=== PATIENT | female | born 1990 | race Caucasian/White ===

== ENCOUNTER 2023-11-10 00:55 | Emergency (ER) | payer MEDICAID, SELFPAY ==
[2023-11-10] VITALS (40 sets, daily range): BP systolic 106–142; BP diastolic 34–97; PULSE 75–114; RESP 16–19; TEMP 36.1; O2SAT 88–100; BMI 25.1
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
[2023-11-10 01:52] LABS: Chloride* 106 mmol/L (96-114); Potassium* 3.8 mmol/L (3.6-5.1); Sodium* 140 mmol/L (135-149)
[2023-11-10 01:54] LABS: Creatinine* 0.6 mg/dL (0.5-1.5); Est. Creatinine Clearance* 139.37; Estimated Glomerular Filt Rate 121 ml/min
[2023-11-10 01:55] LABS: Anion Gap 13 mEq/L (7-15); Blood Urea Nitrogen* 9 mg/dL (5-24); Calcium* 9.2 mg/dL (8.4-10.6); Carbon Dioxide* 21 mmol/L (20-32); Glucose* 121 mg/dL (60-115); Magnesium* 2.2 mg/dL (1.5-2.6)
[2023-11-10 01:56] LABS: HCG Qualitative Serum* Negative (Negative)
[2023-11-10 02:04] LABS: Ethanol* 0.35 % (0.01-0.03)
[2023-11-10] MEDS: AMPICILLIN/SULBACTAM 1.5 GM in 0.9 % SODIUM CHLORIDE Mini-bag 100 ML IVPB (02:09)
[2023-11-10] MEDS: LACTATED RINGERS 1000 ML 1,000 ML 500 ML IV (02:48)
[2023-11-10] MEDS: HYDROmorphone 0.5 mg/0.5 ml inj IVP ×2 (03:01→04:10)
[2023-11-10] MEDS: NICOTINE 21 MG PATCH 1 PATCH TRANSDERMA (03:01)
--- NOTE | 2023-11-10 03:11 | PC.NURSE ---
Pt placed on 2L O2 per NC for sats 89% on room air after dilaudid IVP. Sats up to 94%.
[2023-11-10] MEDS: LACTATED RINGERS 1000 ML 1,000 ML 125 ML IV (04:53)
== END 2023-11-10 05:07 | disposition short-term general hospital (02) ==
PROVIDERS: Emergency Provider Family Medicine
DX: S02.40FA Zygomatic fracture, left side, initial encounter for closed fracture (principal); S02.69XB Fracture of mandible of other specified site, initial encounter for open fracture; V00.841A Fall from standing electric scooter, initial encounter; S03.03XA Dislocation of jaw, bilateral, initial encounter; F10.129 Alcohol abuse with intoxication, unspecified
CPT/HCPCS: 36415; 70450; 70486; 72125; 80048; 82077; 83735; 84703; 96365; 99285; 99291; J0295; J1170; J7120; S4990

== ENCOUNTER 2023-11-10 04:44 | Outpatient (CLI) | payer MEDICAID, SELFPAY | END 2023-11-10 04:45 | disposition home or self-care (01) | LOC: AMB 11-11 04:17 | PROVIDERS: Visit Provider Family Medicine | DX: S09.93XA Unspecified injury of face, initial encounter (principal) | CPT/HCPCS: A0425; A0427 ==

== ENCOUNTER 2023-11-13 21:03 | Emergency (ER) | payer MEDICAID, SELFPAY ==
[2023-11-13 21:08] VITALS: BP 136/85; PULSE 84; RESP 16; TEMP 37; O2SAT 97; BMI 23.6
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
--- OUTSIDE RECORDS SUMMARY | 2023-11-13 21:53 | XMS_ITS | Referral Summary ---
Author Organization [facility] Address [address] [place] [address] Phone Care Team Providers Care Corporate Licensed Broker Name Role Phone Unavailable Primary Care Provider Unavailabl e Source Comments [employer] is fully rolled out on [employer]. Last update 09/22/08.Path101 Encounters Date Type Department Care Team Description 11/12/2023 Nurse Triage [facility] [address] [id number] Ros Lange RN Post Op 11/11/2023 Orders Only Unspecified Department [place] Unknown, Provider 11/11/2023 Orders Only Unspecified Department [place] Unknown, Provider 11/10/2023 5:40 AM CDT - 11/11/2023 5:42 PM CDT Hospital Encounter [facility] 1 [address] [facility] [address] [place] [address] Paige Koehler MD Smith, Mark D, MD Payne, Rachel E, MD Masters, Misael Palma II, MD Closed fracture of mandible, unspecified laterality, unspecified mandibular site, initial encounter ([facility]) Discharge Disposition: Discharged to home or self care (routine discharge) 11/10/2023 4:18 PM CDT Anesthesia Event OR P4 [address] [place] [id number] Misael Jones MD Ahinful, Jana P, RN 11/10/2023 4:00 PM CDT - 11/10/2023 6:50 PM CDT Surgery OR P4 [address] [place] [address] Kota Fernández MD MANDIBLE ORIF, maxillomandibular fixation 11/10/2023 Orders Only [facility] Radiology Department ROEL [address] [place] [place] [address] Provider, Outside Referral of patient (Primary Dx) 11/10/2023 Travel from Last 3 Months Allergies No known active allergies Medications * Be aware that medications may not be up to date as of this document. Always verify current medications with patient. Medication Sig Dispensed Refills Start Date End Date Status acetaminophen childrens 160 mg/ 5 ml oral oral suspensionIndications :Pain Take 20 mL (640 mg) by mouth every 4 hours as needed (Use as needed for pain every 4 hours). 472 mL 1 11/11/2023 Active chlorhexidine (PERIDEX) 0.12% mouth/throat solutionIndications:O pen fracture of symphysis of body of mandible, initial encounter ([facility]),Closed fracture of mandible, unspecified laterality, unspecified mandibular site, initial encounter ([facility]) Swish and spit 15 mL by mouth 3 times daily. 473 mL 1 11/11/2023 Active ondansetron (ZOFRAN) 4 mg oral TABS Take 1 tablet (4 mg) by mouth twice daily as needed for Nausea/Vomiting . 10 tablet 11/11/2023 Active oxyCODONE (ROXICODONE) 5 mg/5 mL oral solution Take 5-10 mL (5-10 mg) by mouth every 6 hours as needed for Severe Pain. 320 mL 11/11/2023 11/19/2023 Active senna (SENOKOT) 8.6 mg oral tablet Take 1 tablet (8.6 mg) by mouth twice daily. 30 tablet 1 11/11/2023 Active Active Problems Problem Noted Date Diagnosed Date Open fracture of tooth, initial encounter 2023 Closed fracture of mandible, unspecified laterality, unspecified mandibular site, initial encounter ([facility]) 11/10/2023 Immunizations Name Administration Dates Next Due Tetanus Toxoid, Reduced Diph theroid Toxoid Acellular Pertussis 11/10/2023 Social History Tobacco Use Types Packs/Day Years Used Date Smoking Tobacco: Every Day Cigarettes Alcohol Use Standard Drinks/Week Comments Yes 0 (1 standard drink = 0.6 oz pur e alcohol) Humiliation, Afraid, Rape, and Kick questionnair e Answer Date Recorded Within the last year, have y ou been afraid of your partner or ex-partner? No 11/10/2023 Within the last year, have y ou been humiliated or emotionally abused in other ways by your partner or ex-partner? No Within the last year, have y ou been kicked, hit, slapped, or otherwise physically hurt by your partner or ex-partner? No 11/10/2023 Within the last year, have y ou been raped or forced to have any kind of sexual activity by your partner or ex-partner? No 11/10/2023 Overall Financial Resource Strain (CARDIA) Answe r Date Recorded How hard is it for you to pa y for the very basics like food, housing, medical care, and heating? Not very hard 11/10/2023 Hunger Vital Sign Answer Date Recorded Within the past 12 months, y ou worried that your food would run out before you got the money to buy more. Never true 11/10/19 24 Within the past 12 months, t he food you bought just didn't last and you didn't have money to get more. Never true 11/10/2023 PRAPARE - Transportation Answer Date Re corded In the past 12 months, has l ack of transportation kept you from medical appointments or from getting medications? No 10/19 In the past 12 months, has l ack of transportation kept you from meetings, work, or from getting things needed for daily living? No 11/10/2023 Housing Stability Answer Date Recorded What is your housing situation today? 3 - I have housing 11/10/2023 Sex and Gender Information Value Date Recorded Sex Assigned at Not on file Gender Identity Not on file Sexual Orientation Not on file Last Filed Vital Signs Vital Sign Reading Time Taken Comments Blood Pressure 139/90 11/11/2023 4:00 PM CDT Pulse 86 11/11/2023 4:00 PM CDT Temperature 36.7 ??C (98 ??F) 11/11/2023 3:14 PM CDT Respiratory Rate 18 11/11/2023 3:14 PM CDT Oxygen Saturation 97% 11/11/2023 4:00 PM CDT Inhaled Oxygen Concentration - - Weight 74 kg (163 lb 2.3 oz) 11/10/2023 9:19 PM CDT Height 175.3 cm (5' 9) 11/10/2023 3:30 PM CDT Body Mass Index 24.09 11/10/2023 3:30 PM CDT Plan of Treatment Upcoming Encounters Date Type Department Care Team (Late st Contact Info) Description 11/18/2023 1:00 PM CDT Office Visit [facility] [address] [place] [phone] Scheduled Discharge Disposition: Discharged to home or self care (routine discharge) 11/23/2023 10:00 AM CDT Office Visit [facility] [address] [place] [address] Sonia, Gen Surg Trauma [address] [place] [id number] Scheduled Discharge Disposition: Discharged to home or self care (routine discharge) Medical Devices Implanted Type Area Lead Press Operator Device Identifier Shelf Expiration Date Model / Serial / Lot Cedar 24 Gauge 9in [id number] Implanted:Qty : 9 on 11/10/2023 by Kota Fernández MD at [facility] Bilateral: Mandible [employer]-24GA / / Cedar 22 Gauge 9in Wire [id number] Implanted:Qty : 1 on 11/10/2023 by Kota Fernández MD at [facility] Bilateral: Mandible [employer]-22GA / / Cedar 26 Gauge 9in [id number] Implanted:Qty : 1 on 11/10/2023 by Kota Fernández MD at [facility] N/A: Mandible [employer]-26GA / / 3x3 Cresent .727 Implanted:Qty : 1 on 11/10/2023 by Kota Fernández MD at [facility] Plate Mandible [employer] 503.72 7 / / 2x2 Hole Broad, Malleable .750 Implanted:Qty : 1 on 11/10/2023 by Kota Fernández MD at [facility] Plate Mandible [employer] 503.75 0 / / Plate, Ti 10 Hole (Short) .820 Implanted:Qty : 1 on 11/10/2023 by Kota Fernández MD at [facility] Plate Mandible [employer] 04.503.82 0 / / 16mm .446.01 Implanted:Qty : 2 on 11/10/2023 by Kota Fernández MD at [facility] Screw/Junie t Mandible [employer] .503.44 6.01 / / Screw Wave 8mm, ..825.01 Implanted:Qty : 1 on 11/10/2023 by Kota Fernández MD at [facility] Screw/Junie t Mandible [employer] ..82 5.01 / / 6mm ..406.01 Implanted:Qty : 4 on 11/10/2023 by Kota Fernández MD at [facility] Screw/Junie t Mandible [employer] .503.40 6.01 / / 12 Mm .442. Implanted:Qty : 2 on 11/10/2023 by Kota Fernández MD at [facility] Screw/Junie t Mandible [employer] .503.44 2.01 / / 14mm 444.01 Implanted:Qty : 2 on 11/10/2023 by Kota Fernández MD at [facility] Screw/Junie t Mandible [employer] .503.44 4.01 / / Screw Wave 6mm ..824.01 Implanted:Qty : 6 on 11/10/2023 by Kota Fernández MD at [facility] Mandible [employer] [email or web address] .503.82 4.01 / / Procedures Procedure Name Priority Date/Time Associated Diagnosis Comments TELEMETRY STRIPS 11/11/2023 8:51 AM CDT TELEMETRY STRIPS 11/11/2023 8:43 AM CDT PANEL BASIC METABOLIC (BMP) Routine 11/11/2023 6:15 AM CDT TC LAB BLOOD DRAW BY VENIPUNCTURE Routine 11/11/2023 6:[address] FACIAL BONES NO IV CON Routine 11/10/2023 9:07 PM CDT POC GLUCOSE Routine 11/10/2023 8:06 PM CDT INTUBATION Routine 11/10/2023 5:[address] OUTSIDE READ HEAD/FACIAL BONES Routine 11/10/2023 5:[address] OUTSIDE READ SPINE CERVICAL/NECK Routine 11/10/2023 4:[address] OUTSIDE READ HEAD/FACIAL BONES Routine 11/10/2023 4:57 PM CDT MANDIBLE ORIF Urgent (< 48 hrs) 11/10/2023 4:08 PM CDT Open fracture of symphysis of body of mandible, initial encounter (CMS) PF NEED BONER MEAT REVIEW ADDITIONAL COMMENT NWR Routine 11/10/2023 7:30 AM CDT PF REPR SUPERF WND FACE 2.6-5 Routine 11/10/2023 7:30 AM CDT XR PELVIS AP* Routine 11/10/2023 7:25 AM CDT XR CHEST 2 VIEWS PA + LAT* Routine 11/10/2023 7:25 AM CDT EXTRA TUBE - SST Routine 11/10/2023 6:45 AM CDT TC LAB BLOOD DRAW BY VENIPUNCTURE Routine 11/10/2023 6:45 AM CDT BETA HCG, SERUM STAT 11/10/2023 6:40 AM CDT PRECAUTIONARY TUBE STAT 11/10/2023 6: 40 AM CDT PC ELECTROLYTES PANEL STAT 11/10/2023 6:40 AM CDT PC LAB CBC W/DIFF & PLT STAT 11/10/2023 6:40 AM CDT HIV 1 AND HIV 2 SCREEN Routine 10/02/2009 Screening for HIV (human immunodeficiency virus) from Last 3 Months or Most Recently Relevant to Health Maintenance Results * TELEMETRY STRIPS (11/11/2023 8:51 AM CDT) Only the most recent of2 resultswithin the time period is included. Narrative 11/11/2023 8:51 AM CDT Ordered by an unspecified provider. Provider Unknown RAD ECHO * (ABNORMAL) PANEL BASIC METABOLIC (BMP) (11/11/2023 6:15 AM CDT) CO2 26 22 - 30 mmol/L [facility] Glucose 128(H) 70 - 100 mg/dL [facility] BUN 7 6 - 20 mg/dL [facility] Creatinine 0.63 0.50 - 1.00 mg/dL [facility] Calcium 8.8 8.6 - 10.0 mg/dL [facility] Sodium 138 135 - 148 mmol/L [facility] Potassium 3.9 3.5 - 5.3 mmol/L [facility] Chloride 103 92 - 108 mmol/L [facility] eGFR (2020 CKD-EPI) 120 >=60 ml/min/1.7 3m2 [facility] Comment: The estimated glomerular filtration rate (eGFR) was calculated using the CKD-EPI 2020 creatinine equation, which does not include race as a factor. This equation is validated in individuals 18 years of age and older, and eGFR is normalized to a body surface area of 1.73m^2. AnGap 9 8 - 16 mmol/L [facility] Blood 11/11/2023 6:15 AM CDT 11/11/2023 6:22 AM CDT Paige Koehler MD LABORATORY [facility] [address] [place] [id number] * (ABNORMAL) CBC WITH PLATELET (11/11/2023 6:15 AM CDT) WBC 11.76(H) 4.00 - 10.00 k/cmm [facility] RBC 4.07 3.90 - 5.20 m/cmm [facility] Hgb 13.3 11.5 - 15.7 g/dL [facility] Hematocrit 39.7 34.0 - 45.0 % [facility] MCV 97.5 80.0 - 100.0 fL [facility] MCH 32.7(H) 25.0 - 32.0 pg [facility] MCHC 33.5 31.0 - 36.0 g/dL [facility] RDW 12.2 11.5 - 14.5 % [facility] Plt 234 150 - 400 k/cmm [facility] MPV 9.7 6.5 - 12.5 fL [facility] Blood 11/11/2023 6:15 AM CDT 11/11/2023 6:22 AM CDT Paige Koehler MD LABORATORY [facility] [address] [address] * CT FACIAL BONES NO IV CON (11/10/2023 9:07 PM CDT) Anatomical Region Laterality Modality Skull Computed Tomogra phy 11/10/2023 9:23 PM CDT Impressions 11/10/2023 10:21 PM CDT Impression: 1. Postoperative changes of ORIF of the parasymphyseal mandibular fracture with improved alignment. Mandibulomaxillary fixation. 2. Increased displacement of the right subcondylar fracture. Stable displaced left subcondylar patent left coronoid process fractures. I have personally reviewed the image(s) and initial interpretation, and I agree with the findings as documented by the resident/fellow. Reading Radiologist: Kam Argueta Reading Resident: Byron Neil Narrative 11/10/2023 10:21 PM CDT Indication: ??post-op mandible ORIF ??. Comparison: ??Same day CT facial bones ?? Technique:Using thin collimation multidetector helical acquisition technique, axial and coronal thin section CT images were reconstructed through the facial bones. Images were reviewed in bone and soft tissue windows. Dose Total DLP = 191.4 mGy.cm. ?? Findings: ?? Postoperative changes of ORIF of the parasymphyseal mandibular fracture with mandibulomaxillary fixation. Improved alignment of the parasymphyseal fracture. Increased displacement of the right subcondylar fracture. Stable displaced left subcondylar and left coronoid process fractures. Mild soft tissue swelling. Postsurgical subcutaneous emphysema. Unremarkable orbits. Paranasal sinuses and mastoid air cells are clear. Procedure Note Kam Argueta MD - 11/10/2023 Indication: post-op mandible ORIF . Comparison: Same day CT facial bones Technique:Using thin collimation multidetector helical acquisitiontechnique, axial and coronal thin section CT images were reconstructedthrough the facial bones. Images were reviewed in bone and soft tissuewindows. Dose Total DLP = 191.4 mGy.cm. Findings: Postoperative changes of ORIF of the parasymphyseal mandibular fracturewith mandibulomaxillary fixation. Improved alignment of the parasymphysealfracture. Increased displacement of the right subcondylar fracture. Stable displacedleft subcondylar and left coronoid process fractures. Mild soft tissue swelling. Postsurgical subcutaneous emphysema.Unremarkable orbits. Paranasal sinuses and mastoid air cells are clear. IMPRESSION Impression: 1. Postoperative changes of ORIF of the parasymphyseal mandibular fracturewith improved alignment. Mandibulomaxillary fixation. 2. Increased displacement of the right subcondylar fracture. Stabledisplaced left subcondylar patent left coronoid process fractures. I have personally reviewed the image(s) and initial interpretation, and Iagree with the findings as documented by the resident/fellow. Reading Radiologist: Kam Argueta Reading Resident: Byron Neil Miguel Finch MD RAD CT NEURO * (ABNORMAL) POC GLUCOSE (11/10/2023 8:06 PM CDT) POC Glucose 140(H) 70 - 100 mg/dL [facility] Blood 11/10/2023 8:06 PM CDT Paige Koehler MD LABORATORY [facility] [address] [place] [address], * Intubation/Airway (11/10/2023 5:42 PM CDT) Narrative Manuelito Nam APRN, ASHISH - 11/10/2023 5:42 PM CDT Manuelito Nam APRN, CRNA ? 11/10/2023 ??5:42 PM AIRWAY/INTUBATION PROCEDURE GlideScope ??(Type: Surgical Anesthesia) Process/Method: sedated and paralyzed ?? Indications for procedure: surgery Assessment: TMD >3 finger breadths and vocal cords open and clear Preoxygenation: mask Device ?? The patient was intubated with a 6.5 mm nasal POLLO endotracheal tube inflated to seal and secured at 25 cm to R Naris Grade: I Sellicks not used Narrative 1 intubation attempt(s) confirmed in 0-30 sec ?? Intubation Assessment: +ETCO2, EBBS and fog in ETT Ease of masking (I-easy to IV-difficult): I Ease of intubation (I-easy to IV-difficult): I Dentition Assessment: dentition unchanged and oral mucosa unchanged Events Anesthesia start: 11/10/2023 4:18 PM Intubation time: 11/10/2023 4:26 PM Misael Jones MD PROCEDURES * CT OUTSIDE READ HEAD/FACIAL BONES (11/10/2023 5:26 PM CDT) Only the most recent of2 resultswithin the time period is included. Anatomical Region Laterality Modality Skull Computed Tomogra phy 11/10/2023 8:29 PM CDT Impressions 11/10/2023 8:34 PM CDT Impression: ?? Multiple acute displaced mandibular fractures. Reading Radiologist: Kam Argueta Narrative 11/10/2023 8:34 PM CDT Indication: ??Patient transferred from [facility] due to Trauma. ??No initial report accompanied the patient and/or Dr. ??SANDRA NORTH requested an interpretation by me. Technique: ??CT scan of the facial bones done on 11/10/2023 without IV contrast. ??3 mm axial and coronal reconstructions reviewed in soft tissue and bone windows, per the local institution's scanning protocols, which may differ from the [facility] trauma protocols. Findings: ?? Acute mandible fractures: -Mildly displaced and comminuted right parasymphyseal fracture that involves the alveolar ridge at the left central incisor and likely at the right central incisor. -Displaced right subcondylar fracture with apex lateral. -Displaced left subcondylar fracture. -Displaced fracture of the left coronoid process. No additional facial fractures identified. Minimal soft tissue swelling. Orbits are unremarkable. Paranasal sinuses are clear. Visualized intracranial contents are unremarkable on these limited images. Procedure Note Kam Argueta MD - 11/10/2023 Indication: Patient transferred from [facility] due to Trauma.No initial report accompanied the patient and/or Dr. SANDRA NORTHrequested an interpretation by me. Technique: CT scan of the facial bones done on 11/10/2023 without IVcontrast. 3 mm axial and coronal reconstructions reviewed in soft tissueand bone windows, per the local institution's scanning protocols, whichmay differ from the [facility] trauma protocols. Findings: Acute mandible fractures: -Mildly displaced and comminuted right parasymphyseal fracture thatinvolves the alveolar ridge at the left central incisor and likely at theright central incisor. -Displaced right subcondylar fracture with apex lateral. -Displaced left subcondylar fracture. -Displaced fracture of the left coronoid process. No additional facial fractures identified. Minimal soft tissue swelling.Orbits are unremarkable. Paranasal sinuses are clear. Visualizedintracranial contents are unremarkable on these limited images. IMPRESSION Impression: Multiple acute displaced mandibular fractures. Reading Radiologist: Kam Argueta Sandra North PORTABLE MACHINE CUTTER, CELEBRITY MANAGER RAD CT NEURO * CT OUTSIDE READ SPINE CERVICAL/NECK (11/10/2023 4:58 PM CDT) Anatomical Region Laterality Modality Cervical Spine Computed Tomogra phy 11/10/2023 4:31 PM CDT Impressions 11/10/2023 4:52 PM CDT Impression: ?? 1. No fracture or subluxation of the cervical vertebrae. 2. No significant spinal canal or neural foraminal stenosis. 3. Mandibular fractures better evaluated on same day CT head. I have personally reviewed the image(s) and initial interpretation, and I agree with the findings as documented by the resident/fellow. Reading Radiologist: Kam Argueta Reading Resident: Byron Neil 11/10/2023 4:52 PM CDT Indication: ??Patient transferred from outside Hospital due to Trauma. ??No initial report accompanied the patient and/or Dr. ??SANDRA NORTH requested an interpretation by me. Technique: ??CT scan of the cervical spine done on 11/10/2023 without IV contrast. ??2 mm axial, sagittal and coronal reconstructions reviewed in soft tissue and bone windows, per the local institution's scanning protocols, which may differ from the [facility] trauma protocols. Findings: ?? The lateral masses of C1 appear normally aligned on C2. Straightening of the normal cervical lordosis. Alignment of the cervical spine appears intact. There is no evidence of fracture or significant prevertebral soft tissue swelling. There is no significant disc space narrowing at any level. No abnormality of the visualized paraspinous tissues is noted. Mandibular bilateral subcondylar fractures better evaluated on same day CT head. Procedure Note Kam Argueta MD - 11/10/2023 Indication: Patient transferred from outside Hospital due to Trauma. Noinitial report accompanied the patient and/or Dr. SANDRA NORTH requestedan interpretation by me. Technique: CT scan of the cervical spine done on 11/10/2023 without IVcontrast. 2 mm axial, sagittal and coronal reconstructions reviewed insoft tissue and bone windows, per the local institution's scanningprotocols, which may differ from the [facility] trauma protocols. Findings: The lateral masses of C1 appear normally aligned on C2. Straightening ofthe normal cervical lordosis. Alignment of the cervical spine appearsintact. There is no evidence of fracture or significant prevertebral softtissue swelling. There is no significant disc space narrowing at anylevel. No abnormality of the visualized paraspinous tissues is noted. Mandibular bilateral subcondylar fractures better evaluated on same day CThead. IMPRESSION Impression: 1. No fracture or subluxation of the cervical vertebrae. 2. No significant spinal canal or neural foraminal stenosis. 3. Mandibular fractures better evaluated on same day CT head. I have personally reviewed the image(s) and initial interpretation, and Iagree with the findings as documented by the resident/fellow. Reading Radiologist: Kam Argueta Reading Resident: Byron Neil Sandra North PORTABLE MACHINE CUTTER, CELEBRITY MANAGER RAD CT NEURO * PF REPR SUPERF WND FACE 2.6-5, PF NEED BONER MEAT REVIEW ADDITIONAL COMMENT NWR (11/10/2023 7:30 AM CDT) Narrative Paige Koehler MD - 11/10/2023 7:30 AM CDT Venkatesh Chang MD ? 11/10/2023 ??7:44 PM Laceration Repair Performed by: Venkatesh Chang MD Authorized by: Paige Koehler MD ?? Consent: ??Consent obtained: ??Verbal Anesthesia: ??Anesthesia method: ??Local infiltration ??Local anesthetic: ??Lidocaine 1% WITH epi Laceration details: ??Location: ??Face ??Face location: ??Chin ??Length (cm): ??4 ??Depth (mm): ??2 Exploration: ??Hemostasis achieved with: ??Direct pressure ??Wound exploration: entire depth of wound visualized ?? Treatment: ??Area cleansed with: ??Saline ??Amount of cleaning: ??Standard ??Irrigation solution: ??Sterile saline ??Irrigation volume: ??50 ??Irrigation method: ??Syringe ??Visualized foreign bodies/material removed: no ?? Skin repair: ??Repair method: ??Sutures ??Suture size: ??5-0 ??Wound skin closure material used: Ethilon. ??Suture technique: ??Simple interrupted ??Number of sutures: ??4 Repair type: ??Repair type: ??Simple Post-procedure details: ??Procedure completion: ??Tolerated well, no immediate complications Comments: ?? 4ccs of 1% lidocaine with epi injected into area Paige Koehler MD PROCEDURES * XR PELVIS AP* (11/10/2023 7:25 AM CDT) Anatomical Region Laterality Modality Pelvis Computed Radiogr aphy 11/10/2023 7:40 AM CDT Impressions 11/10/2023 7:41 AM CDT Impression: No acute osseous abnormalities Reading Radiologist: Jay Yeager 11/10/2023 7:41 AM CDT EXAMINATION: XR PELVIS AP* 11/10/2023 7:26 AM Indication: ??trauma ??. Comparison: None Findings: Lower lumbar spine is unremarkable. SI joints are symmetric. Iliac crests are intact. Anterior pelvis is negative. Femoral necks and proximal femurs are negative. Procedure Note Jay Yeager MD - 11/10/2023 EXAMINATION: XR PELVIS AP* 11/10/2023 7:26 AM Indication: trauma . Comparison: None Findings: Lower lumbar spine is unremarkable. SI joints are symmetric.Iliac crests are intact. Anterior pelvis is negative. Femoral necks andproximal femurs are negative. IMPRESSION Impression: No acute osseous abnormalities Reading Radiologist: Jay Yeager Paige Koehler MD RAD XRAY * XR CHEST 2 VIEWS PA + LAT* (11/10/2023 7:25 AM CDT) Anatomical Region Laterality Modality Chest Computed Radiogr aphy 11/10/2023 7:38 AM CDT Impressions 11/10/2023 7:40 AM CDT Impression: No traumatic abnormalities. No acute disease Reading Radiologist: Jay Yeager Narrative 11/10/2023 7:40 AM CDT EXAMINATION: XR CHEST 2 VIEWS PA + LAT* 11/10/2023 7:25 AM Indication: ??trauma ??. Comparison: None Findings: Cardiomediastinal silhouette is normal. Lungs are free from infiltrate and negative for pneumothorax. No effusions. Skeletal structures are intact. Procedure Note Jay Yeager MD - 11/10/2023 EXAMINATION: XR CHEST 2 VIEWS PA + LAT* 11/10/2023 7:25 AM Indication: trauma . Comparison: None Findings: Cardiomediastinal silhouette is normal. Lungs are free frominfiltrate and negative for pneumothorax. No effusions. Skeletalstructures are intact. IMPRESSION Impression: No traumatic abnormalities. No acute disease Reading Radiologist: Jay Yeager Paige Koehler MD RAD XRAY * EXTRA TUBE - BLUE (11/10/2023 6:45 AM CDT) BLUE TUBE [facility] Comment:Blue top(Sodium citr ate) tubes are kept for 3 days from the collection date. Blood 11/10/2023 6:45 AM CDT 11/10/2023 6:56 AM CDT Paige Koehler MD LABORATORY [facility] [address] [address] * EXTRA TUBE - SST (11/10/2023 6:45 AM CDT) SST TUBE Stored [facility] Comment:SST tubes (Serum Sep arator) are stored in the lab for 3 days from the collection date. Blood 11/10/2023 6:45 AM CDT 11/10/2023 6:56 AM CDT Paige Koehler MD LABORATORY Performing Organization Address City/[facility] Co de Phone Number [facility] [address] [phone] * (ABNORMAL) ED CHEMISTRY LABS(NA,K,CL,CO2,GLU,CREAT,CA-IONIZED,ANION GAP) (11/10/2023 6:40 AM CDT) Sodium 145 135 - 148 mmol/L [facility] Chloride 110(H) 92 - 108 mmol/L [facility] AnGap 11 8 - 16 mmol/L [facility] Glucose 126(H) 70 - 100 mg/dL [facility] ICA, Actual 4.36(L) 4.40 - 5.20 mg/dL [facility] ICA, pH Corrected 4.39(L) 4.40 - 5.20 mg/dL [facility] Creatinine 0.73 0.50 - 1.00 mg/dL [facility] BICARB 24 22 - 26 mEq/L [facility] eGFR (2020 CKD-EPI) 111 >=60 ml/min/1.7 3m2 [facility] Comment: The estimated glomerular filtration rate (eGFR) was calculated using the CKD-EPI 2020 creatinine equation, which does not include race as a factor. This equation is validated in individuals 18 years of age and older, and eGFR is normalized to a body surface area of 1.73m^2. Potassium 3.7 3.5 - 5.3 mmol/L [facility] Blood 11/10/2023 6:40 AM CDT 11/10/2023 6:58 AM CDT Paige Koehler MD LABORATORY [facility] [address] [place] [phone] * (ABNORMAL) CBC WITH PLTS/AUTO DIFF (11/10/2023 6:40 AM CDT) WBC 8.57 4.00 - 10.00 k/cmm [facility] RBC 4.02 3.90 - 5.20 m/cmm [facility] Hgb 13.2 11.5 - 15.7 g/dL [facility] Hematocrit 38.0 34.0 - 45.0 % [facility] MCV 94.5 80.0 - 100.0 fL [facility] MCH 32.8(H) 25.0 - 32.0 pg [facility] MCHC 34.7 31.0 - 36.0 g/dL [facility] RDW 12.1 11.5 - 14.5 % [facility] Plt 235 150 - 400 k/cmm [facility] MPV 9.5 6.5 - 12.5 fL [facility] Automated Abs Neutrophil 6.37 1.70 - 6.50 k/cmm [facility] Comment:Preliminary ANC, Fin al Result to Follow Abs Immature Granulocyte 0.03 0.00 - 0.09 k/cmm [facility] Comment:The Immature Granulo cyte Absolute count contains metamyelocytes and myelocytes. Abs Neutrophil 6.37 1.70 - 6.50 k/cmm [facility] Abs Lymphocyte 1.76 0.80 - 4.00 k/cmm [facility] Abs Monocyte 0.38 0.20 - 1.00 k/cmm [facility] Abs Eosinophil 0.01 0.00 - 0.60 k/cmm [facility] Abs Basophil 0.02 0.00 - 0.20 k/cmm [facility] Blood 11/10/2023 6:40 AM CDT 11/10/2023 7:11 AM CDT Paige Koehler MD LABORATORY Performing Organization Address City/[facility] Co de Phone Number [address] [phone] * PRECAUTIONARY TUBE (11/10/2023 6:40 AM CDT) Prec Tube Precautionary Blood Bank Specimen Received. [facility] Blood 11/10/2023 6:40 AM CDT 11/10/2023 6:57 AM CDT Paige Koehler MD LAB TRANSFUSION SER VICES Performing Organization Address [facility] Co de Phone Number [address] [address] * BETA HCG, SERUM (11/10/2023 6:40 AM CDT) Beta HCG <1.0 mIU/ml [facility] Comment: HCG Reference Ranges: Male: ?? <2.6 mIU/ml Non ,Premenopausal: <5.3 mIU/ml Postmenopausal: ??<8.3 mIU/ml 3 weeks gestation: ??5.8 - 71.2 mIU/ml 4 weeks gestation: ??9.5 - 750 mIU/ml 5 weeks gestation: ??217 - 7138 mIU/ml 6 weeks gestation: ??158 - 48276 mIU/ml 7 weeks gestation: ??0697 - 884935 mIU/ml 8 weeks gestation: ??52463 - 300484 mIU/ml 9 weeks gestation: ??71007 - 243305 mIU/ml 10 weeks gestation: 18442 - 998544 mIU/ml 12 weeks gestation: 06037 - 699318 mIU/ml 14 weeks gestation: 89645 - 29043 mIU/ml Blood 11/10/2023 6:40 AM CDT 11/10/2023 7:11 AM CDT Paige Koehler MD LABORATORY Performing Organization Address City/[facility] Co de Phone Number [facility] [address] [address] * HIV SCREEN (10/02/2009) HIV1&2 non-reactiv e [facility] Blood specimen (specimen) 10/02/2009 Leora Ruano APRN, CELEBRITY MANAGER [employer] [facility] from Last 3 Months or Most Recently Relevant to Health Maintenance Advance Directives For more information, please contact: [phone] * Full Code (Latest Code Status on File) Date Activated Date Inactivated Comments 11/10/2023 9:17 PM 11/11/2023 8:47 PM Question Answer Comments Does the Patient have prefer ences regarding life sustaining measures (these options only apply when the patient has a pulse): No Discussed Code Status With Whom? Not discussed
--- OUTSIDE RECORDS SUMMARY | 2023-11-13 21:53 | XMS_ITS | Encounter Summary ---
Author Organization [facility] Address [address] [place] [address] Phone Care Team Providers Care Internal Grinder Name Role Phone Unavailable Primary Care Provider Unavailabl e Encounter Details Date Type Department Care Team ([facility] st Contact Info) Description 11/11/2023 Orders Only Unspecified Department [place] Unknown, Provider Social History Tobacco Use Types Packs/Day Years [...] on file Sexual Orientation Not on file documented as of this encounter Plan of Treatment Upcoming Encounters Date Type Department Care Team (Late st Contact Info) Description 11/18/2023 1:00 PM CDT [facility] [address] [place] [phone] Scheduled Discharge Disposition: Discharged to home or self care (routine discharge) 11/23/2023 10:00 AM CDT [facility] [address] [place] [phone] Sonia, Gen Surg Trauma [address] [place] [phone] Scheduled Discharge Disposition: Discharged to home or self care (routine discharge) documented as of this encounter Procedures Procedure Name Priority Date/Time Associated Diagnosis Comments TELEMETRY STRIPS 11/11/2023 8:51 AM CDT documented in this encounter Results * TELEMETRY STRIPS (11/11/2023 8:51 AM CDT) Narrative 11/11/2023 8:51 AM CDT Ordered by an unspecified provider. Provider Unknown RAD ECHO documented in this encounter Visit Diagnoses Not on filedocumented in this encounter
--- OUTSIDE RECORDS SUMMARY | 2023-11-13 21:53 | XMS_ITS | Encounter Summary ---
Author Organization [facility] Address [address] [place] [phone] Phone Care Team Providers Care Line Out Man Name Role Phone Unavailable Primary Care Provider Unavailabl e Reason for Visit * Reason Onset Date Comments Post Op 11/12/2023 Encounter Details Date Type Department Care Team ([facility] st Contact Info) Description 11/12/2023 Nurse Triage [facility] [address] [place] [phone] Ros Lange, RN [address] [place] [address] Post Op Social History Tobacco Use Types Packs/Day Years [...] on file documented as of this encounter Miscellaneous Notes * Telephone Encounter - Paula Martines RN - 11/12/2023 9:43 AM CDT D: Warm transfer from summer associate. Patient's boyfriend calling with patient because a band holding her jaw in place snapped last night. Reviewed patient with Dr. Cheema, PGY5 who advised that patient and/or patient's boyfriend can attempt to replace band, but if unable they can wait until their followup appointment next week. A: Relayed recommendations to patient's boyfriend. Direct clinic number given for any further questions or concerns. R/P: Patient and patient's boyfriend indicated understanding and are agreeable to plan. No further questions at this time. Paula Martines RN, 11/12/2023 9:49 AM * Telephone Encounter - Ros Lange RN - 11/12/2023 9:28 AM CDT Reason for Disposition [1] Caller has URGENT question AND [2] triager unable to answer question Protocols used: Post-Op Symptoms and [id number] D: Pt on day 3 s/p Mandible ORIF procedure date of 11/09 with hospital discharge yesterday evening, after her jaw was wired shut. Around 9pm last night, she says something snapped on R side behind canine in one spot. Pain is controlled with her medications. Pt gave verbal to speak to her bf Rommel Blunt: Alannah connected to [facility] for direction - they are also asking whether or not pharmacies sell a jaw ice pack of some kind RP: Pending Ros Lange RN, 11/12/2023 9:32 AM documented in this encounter Plan of Treatment Upcoming Encounters Date Type Department Care Team (Late st Contact Info) Description 11/18/2023 1:00 PM CDT [facility] [address] [place] [phone] Scheduled Discharge Disposition: Discharged to home or self care (routine discharge) 11/23/2023 10:00 AM CDT [facility] [address] [place] [phone] Sonia, Gen Surg Trauma [address] [place] [phone] Scheduled Discharge Disposition: Discharged to home or self care (routine discharge) documented as of this encounter Visit Diagnoses Not on filedocumented in this encounter
--- OUTSIDE RECORDS SUMMARY | 2023-11-13 21:53 | XMS_ITS | Clinical Summary ---
Author Organization [facility] Address [address] [place] [address] Phone Care Team Providers Care Senior Sales Director Name Role Phone Unavailable Primary Care Provider Unavailabl e Source Comments [employer] is fully rolled out on [employer]. Last update 09/22/08.[facility] Allergies No known active allergies Medications * [...] symphysis of body of mandible, initial encounter ([facility]),Closed fracture of mandible, unspecified laterality, unspecified mandibular site, initial encounter ([facility]) Swish and spit 15 mL by mouth [...] unspecified laterality, unspecified mandibular site, initial encounter ([facility]) 11/10/2023 Encounters Date Type Department Care Team Description 11/12/2023 Nurse Triage [facility] [address] [address] Ros Lange RN Post Op 11/11/2023 Orders Only Unspecified Department [place] Unknown, Provider 11/11/2023 Orders Only Unspecified Department [place] Unknown, Provider 11/10/2023 4:18 PM CDT Anesthesia Event OR P4 [address] [place] [address] Misael Jones MD Ahinful, Jana P, RN 11/10/2023 4:00 PM CDT - 11/10/2023 6:50 PM CDT Surgery OR P4 [address] [place] [address] Kota Fernández MD MANDIBLE ORIF, maxillomandibular fixation 11/10/2023 5:40 AM CDT - 11/11/2023 5:42 PM CDT Hospital Encounter [facility] Rapid Treatment Unit [address] [place] [address] Paige Koehler MD Smith, MD David Paul Rachel E, MD Masters, Misael Palma II, MD Closed fracture of mandible, unspecified laterality, unspecified mandibular site, initial encounter ([facility]) Discharge Disposition: Discharged to home or self care (routine discharge) 11/10/2023 Orders Only [facility] Film Room [facility] Radiology Department ROEL [address] [place] [address] Provider, Outside Referral of patient (Primary Dx) 11/10/2023 Travel from Last 3 Months Immunizations Name Administration Dates Next Due Tetanus [...] [facility]ty [facility] [address] [place] [address] Scheduled Discharge Disposition: Discharged to home or self care (routine discharge) 11/23/2023 10:00 AM CDT Office Visit [facility] Surgery Clinic [address] [place] [address] Sonia, Gen Surg Trauma [address] [place] [address] Scheduled Discharge Disposition: Discharged to home or self care (routine discharge) Health Maintenance Due Date Last Done Comments Dental Oral Exam 1990 Dental Prophylaxis 1990 Dental X-Ray: Bitewings 1990 COVID-19 Vaccine (#1) 1995 Imm: Pneumonia Peds or At-Risk less than 65 years (1 of 2 - PCV) 01/11/1996 Periodontal Maintenance 01/11/2004 PREVENTATIVE VISIT 01/11/2008 HEALTH MAINTENANCE PROTOCOL 2009 Cervical Cancer Screening Age 30-65 01/11/2020 INFLUENZA VACCINE 11/19/2023 TD/TDAP ADULTS 11/09/2033 11/10/2023, 10/19, 07/19/1991, Additional history exists HIB Completed 07/19/1991, 03/20, 1990, Additional history exists Imm: HepB Completed 12/24/2004, 08/18, 10/13/2002 HIV Screening Completed 10/02/2009 RSV Immunoglobulin Aged Out No longer eligible based on patient's age to complete this topic Medical Devices Implanted Type Area Cash Processing Specialist Device Identifier Shelf Expiration Date Model / Serial / Lot Drummond 24 Gauge 9in [id number] Implanted:Qty : 9 on 11/10/2023 by Kota Fernández MD at [facility] Misc Bilateral: Mandible [employer]-24GA / / Drummond 22 Gauge 9in Wire [id number] Implanted:Qty : 1 on 11/10/2023 by Kota Fernández MD at [facility] Bilateral: Mandible [employer]-22GA / / Drummond 26 Gauge 9in [id number] Implanted:Qty : 1 on 11/10/2023 by Kota Fernández MD at [facility] N/A: Mandible [facility] PACKAGING ATS-26GA / / 3x3 Cresent [id number] Implanted:Qty : 1 on 11/10/2023 by Kota Fernández MD at [facility] Plate Mandible [employer] 04.503.72 7 / / 2x2 Hole Broad, Malleable 04.503.750 Implanted:Qty : 1 on 11/10/2023 by Kota Fernández MD at [facility] Plate Mandible [employer] [facility] 04.503.75 0 / / Plate, Ti 10 Hole (Short) 04.503.820 Implanted:Qty : 1 on 11/10/2023 by Kota Fernández MD at [facility] Plate Mandible [employer] [facility] 04.503.82 0 / / 16mm [id number] Implanted:Qty : 2 on 11/10/2023 by Kota Fernández MD at [facility] Screw/Junie t Mandible [employer] [facility] 04.503.44 6.01 / / Screw Wave 8mm, [id number] Implanted:Qty : 1 on 11/10/2023 by Kota Fernández MD at [facility] Screw/Junie t Mandible [employer] 04.503.82 5.01 / / 6mm [id number] Implanted:Qty : 4 on 11/10/2023 by Kota Fernández MD at [facility] Screw/Junie t Mandible [employer] [facility] 04.503.40 6.01 / / 12 Mm [id number] Implanted:Qty : 2 on 11/10/2023 by Kota Fernández MD at [facility] Screw/Junie t Mandible [employer] 04.503.44 2.01 / / 14mm [id number] Implanted:Qty : 2 on 11/10/2023 by Kota Fernández MD at [facility] Screw/Junie t Mandible [employer] 04.503.44 4.01 / / Screw Wave 6mm [id number] Implanted:Qty : 6 on 11/10/2023 by Kota Fernández MD at [facility] Mandible [employer] [facility] 04.503.82 4.01 / / Procedures Procedure Name Priority [...] of mandible, initial encounter (CMS) PF NEED CAP PARTS CUTTER REVIEW ADDITIONAL COMMENT NWR Routine 11/10/2023 7:30 [...] CDT) CO2 26 22 - 30 mmol/L [facility] Glucose 128(H) 70 - 100 mg/dL [facility] BUN 7 6 - 20 mg/dL [facility] Creatinine 0.63 0.50 - 1.00 mg/dL [facility] Calcium 8.8 8.6 - 10.0 mg/dL [facility] Sodium 138 135 - 148 mmol/L [facility] Potassium 3.9 3.5 - 5.3 mmol/L [facility] Chloride 103 92 - 108 mmol/L [facility] eGFR (2020 CKD-EPI) 120 >=60 ml/min/1.7 3m2 [facility] Comment: The estimated glomerular filtration rate (eGFR) was calculated using the CKD-EPI 2020 creatinine equation, which does not include race as a factor. This equation is validated in individuals 18 years of age and older, and eGFR is normalized to a body surface area of 1.73m^2. AnGap 9 8 - 16 mmol/L [facility] Blood 11/11/2023 6:15 AM CDT 11/11/2023 6:22 AM CDT Paige Koehler MD LABORATORY Performing Organization Address City/[facility]/ZIP Co de Phone Number [facility] [address] [address] * (ABNORMAL) CBC WITH PLATELET (11/11/2023 6:15 AM CDT) WBC 11.76(H) 4.00 - 10.00 k/cmm [facility] RBC 4.07 3.90 - 5.20 m/cmm [facility] Hgb 13.3 11.5 - 15.7 g/dL [facility] Hematocrit 39.7 34.0 - 45.0 % [facility] MCV 97.5 80.0 - 100.0 fL [facility] MCH 32.7(H) 25.0 - 32.0 pg [facility] MCHC 33.5 31.0 - 36.0 g/dL [facility] RDW 12.2 11.5 - 14.5 % [facility] Plt 234 150 - 400 k/cmm [facility] MPV 9.7 6.5 - 12.5 fL [facility] Blood 11/11/2023 6:15 AM CDT 11/11/2023 6:22 AM CDT Paige Koehler MD LABORATORY Performing Organization Address [facility]/ZIP Co de Phone Number [facility] [address] [address] * CT FACIAL BONES NO IV CON [...] Kam Argueta Reading Resident: Byron Neil 11/10/2023 10:21 PM CDT Indication: ??post-op mandible [...] POC Glucose 140(H) 70 - 100 mg/dL [facility] Blood 11/10/2023 8:06 PM CDT Paige Koehler MD LABORATORY [facility] [address] [place] [address], * Intubation/Airway (11/10/2023 5:42 PM CDT) Narrative Manuelito Nam APRN, CRNA - 11/10/2023 5:42 PM CDT Manuelito Nam [...] displaced mandibular fractures. Reading Radiologist: Kam Argueta 11/10/2023 8:34 PM CDT Indication: ??Patient transferred from [facility] due to Trauma. ??No initial report accompanied the patient and/or Dr. ??SANDRA NORTH requested an interpretation by me. Technique: ??CT scan of the facial bones done on 11/10/2023 without IV contrast. ??3 mm axial and coronal reconstructions reviewed in soft tissue and bone windows, per the local institution's scanning protocols, which may differ from the [facility] trauma protocols. Findings: ?? Acute mandible fractures: [...] MD - 11/10/2023 Indication: Patient transferred from [facility] due to Trauma.No initial report accompanied the patient and/or Dr. SANDRA NORTHrequested an interpretation by me. Technique: CT scan of the facial bones done on 11/10/2023 without IVcontrast. 3 mm axial and coronal reconstructions reviewed in soft tissueand bone windows, per the local institution's scanning protocols, whichmay differ from the [facility] trauma protocols. Findings: Acute mandible fractures: -Mildly [...] fractures. Reading Radiologist: Kam Argueta Sandra North SUPERINTENDENT OVERHEAD DISTRIBUTION, MED AIDE RAD CT NEURO * CT OUTSIDE READ [...] scanning protocols, which may differ from the [facility] trauma protocols. Findings: ?? The lateral masses [...] institution's scanningprotocols, which may differ from the [facility] trauma protocols. Findings: The lateral masses of [...] Argueta Reading Resident: Byron Neil Sandra North SUPERINTENDENT OVERHEAD DISTRIBUTION, MED AIDE RAD CT NEURO * PF REPR SUPERF WND FACE 2.6-5, PF NEED CAP PARTS CUTTER REVIEW ADDITIONAL COMMENT NWR (11/10/2023 7:30 AM [...] acute osseous abnormalities Reading Radiologist: Jay Yeager Narrative 11/10/2023 7:41 AM CDT EXAMINATION: XR PELVIS [...] BLUE (11/10/2023 6:45 AM CDT) BLUE TUBE [facility] Comment:Blue top(Sodium citr ate) tubes are kept for 3 days from the collection date. Blood 11/10/2023 6:45 AM CDT 11/10/2023 6:56 AM CDT Paige Koehler MD LABORATORY Performing Organization Address [facility] Co de Phone Number [address] [address] * EXTRA TUBE - SST (11/10/2023 6:45 AM CDT) SST TUBE Stored [facility] Comment:SST tubes (Serum Sep arator) are stored in the lab for 3 days from the collection date. Blood 11/10/2023 6:45 AM CDT 11/10/2023 6:56 AM CDT Paige Koehler MD LABORATORY Performing Organization Address City/[facility] Co de Phone Number [address] [address] * (ABNORMAL) ED CHEMISTRY LABS(NA,K,CL,CO2,GLU,CREAT,CA-IONIZED,ANION GAP) (11/10/2023 6:40 AM CDT) Sodium 145 135 - 148 mmol/L [facility] Chloride 110(H) 92 - 108 mmol/L [facility] AnGap 11 8 - 16 mmol/L [facility] Glucose 126(H) 70 - 100 mg/dL [facility] ICA, Actual 4.36(L) 4.40 - 5.20 mg/dL [facility] ICA, pH Corrected 4.39(L) 4.40 - 5.20 mg/dL [facility] Creatinine 0.73 0.50 - 1.00 mg/dL [facility] BICARB 24 22 - 26 mEq/L [facility] eGFR (2020 CKD-EPI) 111 >=60 ml/min/1.7 3m2 [facility] Comment: The estimated glomerular filtration rate (eGFR) was calculated using the CKD-EPI 2020 creatinine equation, which does not include race as a factor. This equation is validated in individuals 18 years of age and older, and eGFR is normalized to a body surface area of 1.73m^2. Potassium 3.7 3.5 - 5.3 mmol/L [facility] Blood 11/10/2023 6:40 AM CDT 11/10/2023 6:58 AM CDT Paige Koehler MD LABORATORY [facility] [address] [address] * (ABNORMAL) CBC WITH PLTS/AUTO DIFF (11/10/2023 6:40 AM CDT) WBC 8.57 4.00 - 10.00 k/cmm [facility] RBC 4.02 3.90 - 5.20 m/cmm [facility] Hgb 13.2 11.5 - 15.7 g/dL [facility] Hematocrit 38.0 34.0 - 45.0 % [facility] MCV 94.5 80.0 - 100.0 fL [facility] MCH 32.8(H) 25.0 - 32.0 pg [facility] MCHC 34.7 31.0 - 36.0 g/dL [facility] RDW 12.1 11.5 - 14.5 % [facility] Plt 235 150 - 400 k/cmm [facility] MPV 9.5 6.5 - 12.5 fL [facility] Automated Abs Neutrophil 6.37 1.70 - 6.50 k/cmm [facility] Comment:Preliminary ANC, Fin al Result to Follow Abs Immature Granulocyte 0.03 0.00 - 0.09 k/cmm [facility] Comment:The Immature Granulo cyte Absolute count contains metamyelocytes and myelocytes. Abs Neutrophil 6.37 1.70 - 6.50 k/cmm [facility] Abs Lymphocyte 1.76 0.80 - 4.00 k/cmm [facility] Abs Monocyte 0.38 0.20 - 1.00 k/cmm [facility] Abs Eosinophil 0.01 0.00 - 0.60 k/cmm [facility] Abs Basophil 0.02 0.00 - 0.20 k/cmm [facility] Blood 11/10/2023 6:40 AM CDT 11/10/2023 7:11 AM CDT Paige Koehler MD LABORATORY Performing Organization Address [facility] Co de Phone Number [facility] [address] [address] * PRECAUTIONARY TUBE (11/10/2023 6:40 AM CDT) Pathologist [facility] Prec Tube Precautionary Blood Bank Specimen Received. [facility] Blood 11/10/2023 6:40 AM CDT 11/10/2023 6:57 AM CDT Paige Koehler MD LAB TRANSFUSION SER VICES Performing Organization Address [facility] Co de Phone Number [facility] [address] [address] * BETA HCG, SERUM (11/10/2023 6:40 AM CDT) Beta HCG <1.0 mIU/ml [facility] Comment: HCG Reference Ranges: Male: ?? <2.6 mIU/ml Non ,Premenopausal: <5.3 mIU/ml Postmenopausal: ??<8.3 mIU/ml 3 weeks gestation: ??5.8 - 71.2 mIU/ml 4 weeks gestation: ??9.5 - 750 mIU/ml 5 weeks gestation: ??217 - 7138 mIU/ml 6 weeks gestation: ??158 - 95321 mIU/ml 7 weeks gestation: ??6999 - 697385 mIU/ml 8 weeks gestation: ??96833 - 757284 mIU/ml 9 weeks gestation: ??98739 - 430322 mIU/ml 10 weeks gestation: 63917 - 383154 mIU/ml 12 weeks gestation: 27983 - 710181 mIU/ml 14 weeks gestation: 616[address] - [address] mIU/ml Blood 11/10/2023 6:40 AM CDT 11/10/2023 7:11 AM CDT Paige Koehler MD LABORATORY [facility] [place] [address] * HIV SCREEN (10/02/2009) HIV1&2 non-reactiv e [facility] Blood specimen (specimen) 10/02/2009 Leora Ruano APRN, OSCAR FUENTES [facility] from Last 3 Months or Most Recently Relevant to Health Maintenance Advance Directives For more information, please contact: [phone] * Full Code (Latest Code Status on File) Date Activated Date Inactivated Comments 11/10/2023 9:17 PM 11/11/2023 8:47 PM Question Answer Comments Does the Patient have prefer ences regarding life sustaining measures (these options only apply when the patient has a pulse): No Discussed Code Status With Whom? Not discussed
--- OUTSIDE RECORDS SUMMARY | 2023-11-13 21:53 | XMS_ITS | Encounter Summary ---
Author Organization [facility] Address [address] [place] [phone] Phone Care Team Providers Care Burn Out Tender Lace Name Role Phone Unavailable Primary Care Provider Unavailabl e Encounter Details Date Type Department Care Team ([facility] st Contact Info) Description 11/11/2023 Orders Only [...] Specialty Center [facility] [address] [place] [phone] Scheduled Discharge Disposition: Discharged to home or self care (routine discharge) 11/23/2023 10:00 AM CDT Office Visit [facility] Surgery Clinic [address] [place] [phone] Sonia, Gen Surg Trauma [address] [place] [address] Scheduled Discharge Disposition: Discharged to home or self care (routine discharge) documented as of this encounter Procedures Procedure Name Priority Date/Time Associated Diagnosis Comments TELEMETRY STRIPS 11/11/2023 8:43 AM CDT documented in this encounter Results * TELEMETRY STRIPS (11/11/2023 8:43 AM CDT) Narrative 11/11/2023 8:43 AM CDT Ordered by an unspecified provider. Provider Unknown RAD ECHO documented in this encounter Visit Diagnoses Not on filedocumented in this encounter
--- OUTSIDE RECORDS SUMMARY | 2023-11-13 21:54 | XMS_ITS | Clinical Summary ---
Author Organization [facility] Address [place], [place] [address] Care Team Providers Care Tip Fixer Name Role Phone Unavailable Primary Care Provider Unavailabl e Allergies No known active allergies Medications No known medications Active Problems No known active problems Social History Tobacco Use Types Packs/Day Years Used Date Smoking Tobacco: Every Day Cigarettes 0.5 15 Smokeless Tobacco: Never Tobacco Cessation:Ready to Q uit: Yes; Counseling Given: No Comments:patient is trying to cut back Alcohol Use Standard Drinks/Week Comments Yes 2 (1 standard drink = 0.6 oz pur e alcohol) a drink a day PHQ-2 Answer Date Recorded PHQ-2 TOTAL SCORE 0 05/15/2021 Social Connections Answer Date Recorded Frequency of Communication with Friends and Fami ly Not on file 05/15/2021 Financial Resource Strain Answer Date R ecorded Difficulty of Paying Living Expenses Not on file 05/15/2021 Difficulty of Paying Living Expenses Not on file 05/15/2021 Sex and Gender Information Value Date Recorded Sex Assigned at Not on file Gender Identity Not on file Sexual Orientation Not on file Obstetrics History Last Filed Vital Signs Vital Sign Reading Time Taken Comments Blood Pressure 114/68 05/15/2021 2:35 PM [facility] Pulse 89 05/15/2021 2:35 PM [facility] Temperature 37 ??C (98.6 ??F) 05/15/2021 2:35 PM [facility] Respiratory Rate - - Oxygen Saturation 96% 05/15/2021 2:35 PM [facility] Inhaled Oxygen Concentration - - Weight 70.9 kg (156 lb 3.2 oz) 05/15/2021 2:35 P M [facility] Height 175.3 cm (5' 9) 05/15/2021 2:35 PM [facility] Body Mass Index 23.07 05/15/2021 2:35 PM [facility] Plan of Treatment Health Maintenance Due Date Last Done Comments Tdap 2001 HIV for age 15-65 2005 Hepatitis C screening for ag e 18-79 01/11/2008 Tetanus booster 2010 Pap test for age 21-65 04/24/2018 04/24/2015 BMI (ht and wt on same day) for age 18+ 05/15/2022 05/15/2021 Depression screening for age 12+ 05/15/2022 05/15/19 22 COVID-19 vaccine series (2022- season) 2022 Influenza for age 9-49 12/20/2023 Pneumococcal series for age 6-64 Aged Out No longer eligible based on patient's age to complete this topic Procedures Procedure Name Priority Date/Time Associated Diagnosis Comments TOWEL FOLDER THIN PREP PAP SCREEN IMAGED Routine 04/24/2015 10:10 AM [facility] from Last 3 Months or Most Recently Relevant to Health Maintenance Results * TOWEL FOLDER THIN PREP PAP SCREEN IMAGED (04/24/2015 10:10 AM [facility]) TOWEL FOLDER CYTOLOGY See Anatomic Pathology case 04/29/2015 7:32 PM [facility] [employer] [facility] Specimen (specimen) (Cervical) Client Collect / Unknown 04/24/2015 10:10 AM [facility] 04/24/2015 7:06 PM [facility] Lottie Clarke MD PATHOLOGY/C YTOLOGY [facility] [employer] [facility] [address] [place] [address], [place] from Last 3 Months or Most Recently Relevant to Health Maintenance
--- OUTSIDE RECORDS SUMMARY | 2023-11-13 21:54 | XMS_ITS | Encounter Summary ---
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 HEAD/FACIAL BONES (11/10/2023 5:26 PM CDT) Anatomical Region Laterality Modality Skull Computed Tomogra phy 11/10/2023 8:29 PM CDT Impressions 11/10/2023 8:34 PM CDT Impression: ?? Multiple acute displaced mandibular fractures. Reading Radiologist: Kam Argueta Narrative 11/10/2023 8:34 PM CDT Indication: ??Patient transferred from [facility] due to Trauma. ??No initial report accompanied the patient and/or Dr. ??SANDRA NORTH requested an interpretation by me. Technique: ??CT scan of the facial bones done on 11/10/2023 without IV contrast. ??3 mm axial and coronal reconstructions reviewed in soft tissue and bone windows, per the local institution's scanning protocols, which may differ from the [facility] trauma protocols. Findings: ?? Acute mandible fractures: [...] MD - 11/10/2023 Indication: Patient transferred from [facility] due to Trauma.No initial report accompanied the patient and/or Dr. SANDRA NORTHrequested an interpretation by me. Technique: CT scan of the facial bones done on 11/10/2023 without IVcontrast. 3 mm axial and coronal reconstructions reviewed in soft tissueand bone windows, per the local institution's scanning protocols, whichmay differ from the [facility] trauma protocols. Findings: Acute mandible fractures: -Mildly [...] fractures. Reading Radiologist: Kam Argueta Sandra North SOCIAL WORK CASE MANAGER, AUTO BODY PAINTER RAD CT NEURO * CT OUTSIDE READ [...] by the resident/fellow. Reading Radiologist: Kam Argueta Resident: Byron Neil 11/10/2023 4:52 PM CDT [...] scanning protocols, which may differ from the [facility] trauma protocols. Findings: ?? The lateral masses [...] Trauma. Noinitial report accompanied the patient and/or . SANDRA NORTH requestedan interpretation by me. Technique: CT scan of the cervical spine done on 11/10/2023 without IVcontrast. 2 mm axial, sagittal and coronal reconstructions reviewed insoft tissue and bone windows, per the local institution's scanningprotocols, which may differ from the [facility] trauma protocols. Findings: The lateral masses of [...] Argueta Reading Resident: Byron Neil Sandra North SOCIAL WORK CASE MANAGER, AUTO BODY PAINTER RAD CT NEURO * CT OUTSIDE READ HEAD/FACIAL BONES (11/10/2023 4:57 PM CDT) Anatomical Region Laterality Modality Skull Computed Tomogra phy 11/10/2023 4:25 PM CDT Impressions 11/11/2023 6:10 AM CDT Impression: 1. No acute intracranial pathology. 2. Bilateral subcondylar mandibular fractures: -Mildly posteriorly angulated right mandibular subcondylar fracture, without dislocation. -Displaced, medially angulated left subcondylar fracture, with dislocation from the temporomandibular joint. [place] Traumatic Brain Injury Scale: Diffuse Injury 1 [place] DIAGNOSTIC CATEGORIES OF ABNORMALITIES VISUALIZED ON CT SCANNING FOR TRAUMATIC BRAIN INJURY: Diffuse Injury 1: No visible intracranial pathology seen on CT scan. Diffuse Injury 2: Cisterns are present with shift 0-5 mm and/or lesion densities present. No high or mixed density lesion >25ml. May include bone fragments and foreign bodies. Diffuse Injury 3 (swelling): Cisterns compressed or absent with shift 0-5mm. No high or mixed density lesion > 25ml. ? Diffuse Injury 4 (shift): Shift > 5mm. No high or mixed density lesion > 25ml. Evacuated mass lesion: Any surgically evacuated lesion. ?? Non evacuated mass lesion: High or mixed-density lesion > 25ml. Not surgically evacuated. I have personally reviewed the image(s) and initial interpretation, and I agree with the findings as documented by the resident/fellow. Reading Radiologist: Haleigh Carroll Reading Resident: Misael Harrison 11/11/2023 6:10 AM CDT Indication: ??Patient transferred from [facility] due to Trauma. ??No initial report accompanied the patient and/or Dr. ??SANDRA NORTH requested an interpretation by me. Technique: ??CT scan of the head done on 11/10/2023 without IV contrast. ??3 mm axial and coronal reconstructions reviewed in soft tissue and bone windows, per the local institution's scanning protocols, which may differ from the [facility] trauma protocols. Indication: over read of outside film ??. Comparison: none Technique: Axial thin section CT images through the brain were obtained from the base of the skull through the vertex without intravenous contrast and reviewed in brain, bone and subdural windows. Findings: There is no evidence of intracranial hemorrhage, mass effect, midline shift or abnormal extraaxial fluid collection. The ventricles do not appear enlarged out of proportion to the cerebral sulci. Lancaster-white differentiation is intact throughout both cerebral hemispheres. The bony calvarium and the bones of the skull base appear normal. Bilateral mandibular subcondylar fractures with dislocation of the condylar head on the left. Also displaced fracture of the coronoid process on the left. No right-sided temporomandibular joint dislocation. Review of visualized dentition does not reveal significant periapical dental disease. The visualized portions of the paranasal sinuses and the mastoid air cells are clear. Procedure Note Haleigh Carroll MD - 11/11/2023 Indication: Patient transferred from [facility] due to Trauma.No initial report accompanied the patient and/or Dr. SANDRA NORTHrequested an interpretation by me. Technique: CT scan of the head done on 11/10/2023 without IV contrast. 3mm axial and coronal reconstructions reviewed in soft tissue and bonewindows, per the local institution's scanning protocols, which may differfrom the [facility] trauma protocols. Indication: over read of outside film . Comparison: none Technique: Axial thin section CT images through the brain were obtainedfrom the base of the skull through the vertex without intravenous contrastand reviewed in brain, bone and subdural windows. Findings: There is no evidence of intracranial hemorrhage, mass effect,midline shift or abnormal extraaxial fluid collection. The ventricles donot appear enlarged out of proportion to the cerebral sulci. Lancaster-whitedifferentiation is intact throughout both cerebral hemispheres. The bony calvarium and the bones of the skull base appear normal.Bilateral mandibular subcondylar fractures with dislocation of thecondylar head on the left. Also displaced fracture of the coronoid processon the left. No right-sided temporomandibular joint dislocation. Review ofvisualized dentition does not reveal significant periapical dentaldisease. The visualized portions of the paranasal sinuses and the mastoidair cells are clear. IMPRESSION Impression: 1. No acute intracranial pathology. 2. Bilateral subcondylar mandibular fractures: -Mildly posteriorly angulated right mandibular subcondylar fracture,without dislocation. -Displaced, medially angulated left subcondylar fracture, with dislocationfrom the temporomandibular joint. [place]aw Traumatic Brain Injury Scale: Diffuse Injury 1 [place] DIAGNOSTIC CATEGORIES OF ABNORMALITIES VISUALIZED ON CT SCANNINGFOR TRAUMATIC BRAIN INJURY: Diffuse Injury 1: No visible intracranial pathology seen on CT scan. Diffuse Injury 2: Cisterns are present with shift 0-5 mm and/or lesiondensities present. No high or mixed density lesion >25ml. May include bonefragments and foreign bodies. Diffuse Injury 3 (swelling): Cisterns compressed or absent with shift0-5mm. No high or mixed density lesion > 25ml. Diffuse Injury 4 (shift): Shift > 5mm. No high or mixed density lesion >25ml. Evacuated mass lesion: Any surgically evacuated lesion. Non evacuated mass lesion: High or mixed-density lesion > 25ml. Notsurgically evacuated. I have personally reviewed the image(s) and initial interpretation, and Iagree with the findings as documented by the resident/fellow. Reading Radiologist: Haleigh Carroll Reading Resident: Misael Harrison Sandra North SOCIAL WORK CASE MANAGER, AUTO BODY PAINTER RAD CT NEURO * PF REPR SUPERF WND FACE 2.6-5, PF NEED REGULATORY COMPLIANCE SPECIALIST REVIEW ADDITIONAL COMMENT NWR (11/10/2023 7:30 AM [...] MD RAD XRAY * EXTRA TUBE - SST (11/10/2023 6:45 AM CDT) SST TUBE Stored [facility] Comment:SST tubes (Serum Sep arator) are stored in the lab for 3 days from the collection date. Blood 11/10/2023 6:45 AM CDT 11/10/2023 6:56 AM CDT Paige Koehler MD LABORATORY Performing Organization Address City/[facility]/ZIP Co de Phone Number [facility] [address] [address] * EXTRA TUBE - BLUE (11/10/2023 6:45 AM CDT) BLUE TUBE [facility] Comment:Blue top(Sodium citr ate) tubes are kept for 3 days from the collection date. Blood 11/10/2023 6:45 AM CDT 11/10/2023 6:56 AM CDT Paige Koehler MD LABORATORY [facility] [address] [address] * BETA HCG, SERUM (11/10/2023 6:40 AM CDT) Beta HCG <1.0 mIU/ml [facility] Comment: HCG Reference Ranges: Male: ?? <2.6 mIU/ml Non ,Premenopausal: <5.3 mIU/ml Postmenopausal: ??<8.3 mIU/ml 3 weeks gestation: ??5.8 - 71.2 mIU/ml 4 weeks gestation: ??9.5 - 750 mIU/ml 5 weeks gestation: ??217 - 7138 mIU/ml 6 weeks gestation: ??158 - 95084 mIU/ml 7 weeks gestation: ??7873 - 602752 mIU/ml 8 weeks gestation: ??09634 - 357477 mIU/ml 9 weeks gestation: ??38505 - 257653 mIU/ml 10 weeks gestation: 27154 - 733284 mIU/ml 12 weeks gestation: 30966 - 356152 mIU/ml 14 weeks gestation: 94351 - [address] mIU/ml Blood 11/10/2023 6:40 AM CDT 11/10/2023 7:11 AM CDT Paige Koehler MD LABORATORY Performing Organization Address [facility] Co de Phone Number [facility] [address] [address] * PRECAUTIONARY TUBE (11/10/2023 6:40 AM CDT) Pathologist [facility] Prec Tube Precautionary Blood Bank Specimen Received. [facility] Blood 11/10/2023 6:40 AM CDT 11/10/2023 6:57 AM CDT Paige Koehler MD LAB TRANSFUSION SER VICES Performing Organization Address [facility] Co de Phone Number [facility] [address] [address] * (ABNORMAL) ED CHEMISTRY LABS(NA,K,CL,CO2,GLU,CREAT,CA-IONIZED,ANION GAP) (11/10/2023 6:40 AM CDT) Sodium 145 135 - 148 mmol/L [facility] Chloride 110(H) 92 - 108 mmol/L [facility] AnGap 11 8 - 16 mmol/L [facility] Glucose 126(H) 70 - 100 mg/dL [facility] ICA, Actual 4.36(L) 4.40 - 5.20 mg/dL [facility] ICA, pH Corrected 4.39(L) 4.40 - 5.20 mg/dL [facility] Creatinine 0.73 0.50 - 1.00 mg/dL [facility] BICARB 24 22 - 26 mEq/L [facility] eGFR (2020 CKD-EPI) 111 >=60 ml/min/1.7 3m2 [facility] Comment: The estimated glomerular filtration rate (eGFR) was calculated using the CKD-EPI 2020 creatinine equation, which does not include race as a factor. This equation is validated in individuals 18 years of age and older, and eGFR is normalized to a body surface area of 1.73m^2. Potassium 3.7 3.5 - 5.3 mmol/L [facility] Blood 11/10/2023 6:40 AM CDT 11/10/2023 6:58 AM CDT Paige Koehler MD LABORATORY [facility] [address] [address] * (ABNORMAL) CBC WITH PLTS/AUTO DIFF (11/10/2023 6:40 AM CDT) WBC 8.57 4.00 - 10.00 k/cmm [facility] RBC 4.02 3.90 - 5.20 m/cmm [facility] Hgb 13.2 11.5 - 15.7 g/dL [facility] Hematocrit 38.0 34.0 - 45.0 % [facility] MCV 94.5 80.0 - 100.0 fL [facility] MCH 32.8(H) 25.0 - 32.0 pg [facility] MCHC 34.7 31.0 - 36.0 g/dL [facility] RDW 12.1 11.5 - 14.5 % [facility] Plt 235 150 - 400 k/cmm [facility] MPV 9.5 6.5 - 12.5 fL [facility] Automated Abs Neutrophil 6.37 1.70 - 6.50 k/cmm [facility] Comment:Preliminary ANC, Fin al Result to Follow Abs Immature Granulocyte 0.03 0.00 - 0.09 k/cmm [facility] Comment:The Immature Granulo cyte Absolute count contains metamyelocytes and myelocytes. Abs Neutrophil 6.37 1.70 - 6.50 k/cmm [facility] Abs Lymphocyte 1.76 0.80 - 4.00 k/cmm [facility] Abs Monocyte 0.38 0.20 - 1.00 k/cmm [facility] Abs Eosinophil 0.01 0.00 - 0.60 k/cmm [facility] Abs Basophil 0.02 0.00 - 0.20 k/cmm [facility] Blood 11/10/2023 6:40 AM CDT 11/10/2023 7:11 AM CDT Paige Koehler MD LABORATORY [facility] [address] [place] [id number] documented in this encounter Visit Diagnoses Diagnosis Closed fracture of mandible, unspecified laterality, unspecified mandibular site, initial encounter (CMS)- Primary Open fracture of symphysis of body of mandible, initial encounter (CMS) Closed fracture of mandible, unspecified laterality, unspecified mandibular site, initial encounter (CMS) Open fracture of tooth, initial encounter documented in this encounter Administered Medications Inactive Administered Medications - up to 3 most recent administrations Medication Order MAR Action Action Date Dose Rate Site chlorhexidine (PERIDEX) 0.12% solution 15 mL 15 mL, Swish & Spit, TID, First dose on Thu11/10/23 at 2000, Until Discontinued Given 11/11/2023 1:45 PM CDT 15 mL Given 11/11/2023 8:52 AM CDT 15 mL DC MED REC REVIEW BY PHARMACY Discharge Date: 11/11/2023, Discharge Location: Home, Anticipated Discharge Time: After 2 pm, Discharge Medication Orders: DC Med Orders Final, Does not apply, PROTOCOL, Starting on Thu11/11/23 at 1410, Until Thu11/11/23 at 2041 HYDROmorphone PF (DILAUDID) 1 mg/mL injection 0.2-0.5 mg 0.2-0.5 mg, IV Push, Q4H PRN, Starting on Thu11/10/23 at 2117, Until Thu11/11/23 at 2041, Severe Pain (Use First) Given 11/11/2023 1:42 PM CDT 0.5 mg Given 11/11/2023 6:00 AM CDT 0.5 mg Given 11/11/2023 12:28 AM CDT 0.5 mg HYDROmorphone PF (DILAUDID) 1 mg/mL injection 0.4 mg 0.4 mg, IV Push, PACU PRN Q5MIN, 5 doses, Starting on Thu11/10/23 at 1938, Until Thu11/10/23 at 2110, Severe Pain (Use First) Given 11/10/2023 8:35 PM CDT 0.4 mg HYDROmorphone PF (DILAUDID) 1 mg/mL injection 0.5 mg 0.5 mg, IV Push, ONE TIME, 1 dose, On Thu11/10/23 at 1240 Given 11/10/2023 12:43 PM CDT 0.5 mg HYDROmorphone PF (DILAUDID) 1 mg/mL injection 0.5 mg 0.5 mg, IV Push, ONE TIME, 1 dose, On Thu11/10/23 at 1440 Given 11/10/2023 3:01 PM CDT 0.5 mg HYDROmorphone PF (DILAUDID) 1 mg/mL injection 0.5 mg 0.5 mg, IV Push, ONE TIME, 1 dose, On Thu11/10/23 at 0650 Given 11/10/2023 6:56 AM CDT 0.5 mg HYDROmorphone PF (DILAUDID) 1 mg/mL injection 0.5 mg 0.5 mg, IV Push, ONE TIME, 1 dose, On Thu11/10/23 at 0925 Given 11/10/2023 9:39 AM CDT 0.5 mg lactated ringer's bolus 1,000 mL 1,000 mL, Intravenous, Administer over 60 Minutes, IV BOLUS, 1 dose, On Thu11/10/23 at 1150 New Bag 11/10/2023 12:43 PM CDT 1,000 mL 1000 mL/hr lactated ringers infusion at 50 mL/hr, Intravenous, CONTINUOUS, Starting on Thu11/10/23 at 2120, Until Thu11/11/23 at 204 Infusing 11/11/2023 6:00 AM CDT 50 mL/hr Infusing 11/11/2023 5:00 AM CDT 50 mL/hr Infusing 11/11/2023 4:00 AM CDT 50 mL/hr OLANZapine (ZyPREXA) injection 5 mg 5 mg, IV Push, ONE TIME, 1 dose, On Thu11/10/23 at 1230 Given 11/10/2023 12:32 PM CDT 5 mg OLANZapine (ZyPREXA) injection 1 dose, Starting on Thu11/10/23 at 1229, Until Thu11/10/23 at 1232 ondansetron (ZOFRAN) 4 mg/2 mL injection 4 mg 4 mg, IV Push, ONE TIME, 1 dose, On Thu11/10/23 at 0925 Given 11/10/2023 9:39 AM CDT 4 mg ondansetron (ZOFRAN) 4 mg/2 mL injection 4 mg 4 mg, IV Push, ONE TIME, 1 dose, On Thu11/10/23 at 1120 Given 11/10/2023 11:26 AM CDT 4 mg oxyCODONE (ROXICODONE) 5 mg/5 mL oral solution 5 mg 5 mg, Oral, Q6H PRN, Starting on Thu11/11/23 at 0950, Until Thu11/11/23 at 204, Moderate Pain (Use First) Given 11/11/2023 5:02 PM CDT 5 mg Given 11/11/2023 10:00 AM CDT 5 mg prochlorperazine (COMPAZINE) injection 5 mg 5 mg, IV Push, Q6H PRN, Starting on Thu11/10/23 at 1439, Until Thu11/11/23 at 2041, Nausea/Vomiting (Use First) Given 11/10/2023 3:01 PM CDT 5 mg VTE prophylaxis contraindicated Contraindication Reason: Bleeding Risk, Does not apply, PROTOCOL, Starting on Thu11/10/23 at 2117, Until Thu11/11/23 at 2041 documented in this encounter Active and Recently Administered Medications Times are shown in CDT. Scheduled Medication Order 11/09/2023 11/10/2023 11/11/2023 chlorhexidine (PERIDEX) 0.12% solution 15 mL 15 mL, Swish & Spit, TID, First dose on Thu11/10/23 at 2000, Until Discontinued 2213 (Not Given (removes Due time) - Provider: Neelam Damon RN - Reason: Other (must enter a comment)) 0852 (Given - Provider: Ritesh Hicks RN)1345 (Given - Provider: Alexsandra Naqvi RN) DC MED REC REVIEW BY PHARMACY(Linked Group 1) Discharge Date: 11/11/2023, Discharge Location: Home, Anticipated Discharge Time: After 2 pm, Discharge Medication Orders: DC Med Orders Final, Does not apply, PROTOCOL, Starting on Thu11/11/23 at 1410, Until Thu11/11/23 at 2041 HYDROmorphone PF (DILAUDID) 1 mg/mL injection 0.5 mg (COMPLETED) 0.5 mg, IV Push, ONE TIME, 1 dose, On Thu11/10/23 at 1240 1243 (Given - Provider: Luisa Blandon, MARTINEZ) HYDROmorphone PF (DILAUDID) 1 mg/mL injection 0.5 mg (COMPLETED) 0.5 mg, IV Push, ONE TIME, 1 dose, On Thu11/10/23 at 1440 1501 (Given - Provider: Edna Hanks, MARTINEZ) HYDROmorphone PF (DILAUDID) 1 mg/mL injection 0.5 mg (COMPLETED) 0.5 mg, IV Push, ONE TIME, 1 dose, On Thu11/10/23 at 0650 0656 (Given - Provider: Brooklyn Michelle, MARTINEZ) HYDROmorphone PF (DILAUDID) 1 mg/mL injection 0.5 mg (COMPLETED) 0.5 mg, IV Push, ONE TIME, 1 dose, On Thu11/10/23 at 0925 0939 (Given - Provider: Kaleigh Coto RN) lactated ringer's bolus 1,000 mL (COMPLETED) 1,000 mL, Intravenous, Administer over 60 Minutes, IV BOLUS, 1 dose, On Thu11/10/23 at 1150 1243 (New Bag - Provider: Luisa Blanodn, MARTINEZ)1504 (Infusion completed - Provider: Edna Hanks RN) OLANZapine (ZyPREXA) injection 5 mg (COMPLETED) 5 mg, IV Push, ONE TIME, 1 dose, On Thu11/10/23 at 1230 1232 (Given - Provider: Mariana Germain, MARTINEZ) ondansetron (ZOFRAN) 4 mg/2 mL injection 4 mg (COMPLETED) 4 mg, IV Push, ONE TIME, 1 dose, On Thu11/10/23 at 0925 0939 (Given - Provider: Kaleigh Coto, MARTINEZ) ondansetron (ZOFRAN) 4 mg/2 mL injection 4 mg (COMPLETED) 4 mg, IV Push, ONE TIME, 1 dose, On Thu11/10/23 at 1120 1126 (Given - Provider: Mariana Germain RN) polyethylene glycol 3350 (MIRALAX;GLYCOLAX) packet 17 g 17 g, Oral, DAILY, First dose on Thu11/11/23 at 0800, Until Discontinued 921 (Not Given (rem oves Due time) - Provider: Ritesh Hicks RN - Reason: NPO - Comment: cant swallow) sennosides (SENOKOT) tablet 8.6 mg 8.6 mg, Oral, BID, First dose on Thu11/10/23 at 2120, Until Discontinued 2214 (Not Given (removes Due time) - Provider: Neelam Damon RN - Reason: Other (must enter a comment)) 921 (Not Given (removes Due time) - Provider: Ritesh Hicks RN - Reason: NPO - Comment: cant swallow) VTE Anti Xa Monitoring Does not apply, PROTOCOL, Starting on Thu11/10/23 at 2116, Until Thu11/11/23 at 2041 VTE prophylaxis contraindicated(Linked Group 2) Contraindication Reason: Bleeding Risk, Does not apply, PROTOCOL, Starting on Thu11/10/23 at 2116, Until Thu11/11/23 at 2041 Continuous Medication Order 11/09/2023 11/10/2023 11/11/2023 lactated ringers infusion at 50 mL/hr, Intravenous, CONTINUOUS, Starting on Thu11/10/23 at 2120, Until Thu11/11/23 at 2041 2213 (New Bag - Provider: Neelam Damon RN)2300 (Infusing - Provider: Neelam Damon RN) 0000 (Infusing - Provider: Neelam Damon RN)0100 (Infusing - Provider: Neelam Damon RN)0200 (Infusing - Provider: Neelam Damon RN)0300 (Infusing - Provider: Neelam Damon RN)0400 (Infusing - Provider: Neelam Damon RN)0500 (Infusing - Provider: Neelam Damon RN)0600 (Infusing - Provider: Neelam Damon RN) PRN Medication Order 11/09/2023 11/10/2023 11/11/2023 acetaminophen (TYLENOL) tablet 650 mg 650 mg, Oral, Q4H PRN, Starting on Thu11/10/23 at 2116, Until Thu11/11/23 at 2041, Temp > 38.6 C, Mild Pain (Use First) alum & mag hydroxide-simeth (MAALOX PLUS) suspension 30 mL 30 mL, Oral, TID PRN, Starting on Thu11/10/23 at 2116, Until Thu11/11/23 at 2041, GI Upset chlorhexidine (PERIDEX) 0.12% solution (CANCELED) INTRA-OP ONCE PRN, Starting on Thu11/10/23 at 1639, Until Thu11/10/23 at 2002 1639 (Given - Provider: Jessica Cheema MD) HYDROmorphone PF (DILAUDID) 1 mg/mL injection 0.2-0.5 mg 0.2-0.5 mg, IV Push, Q4H PRN, Starting on Thu11/10/23 at 7, Until Thu11/11/23 at 2041, Severe Pain (Use First) 0028 (Given - Provid er: Neelam Damon RN)0600 (Given - Provider: Neelam Damon RN)0852 (Canceled Entry - Provider: Ritesh Hicks RN)1342 (Given - Provider: Alexsandra Naqvi RN) HYDROmorphone PF (DILAUDID) 1 mg/mL injection 0.4 mg (CANCELED) 0.4 mg, IV Push, PACU PRN Q5MIN, 5 doses, Starting on Thu11/10/23 at 1938, Until Thu11/10/23 at 2111, Severe Pain (Use First) 2034 (Given - Provider: Naif Almazan RN) lidocaine 1%-EPINEPHrine (1:100,000) injection (CANCELED) INTRA-OP ONCE PRN, Starting on Thu11/10/23 at 1638, Until Thu11/10/23 at 2001 1638 (Given - Provider: Kota Fernández MD - Comment: mandible) ondansetron (ZOFRAN) tablet 4 mg 4 mg, Oral, Q6H PRN, Starting on Thu11/10/23 at 2117, Until Thu11/11/23 at 2041, Nausea/Vomiting (Use First), Use if patient able to tolerate oral tablet oxyCODONE (ROXICODONE) 5 mg/5 mL oral solution 5 mg 5 mg, Oral, Q6H PRN, Starting on Thu11/11/23 at 0950, Until Thu11/11/23 at 2041, Moderate Pain (Use First) 1000 (Given - Provid er: Ritesh Hicks RN - Comment: epic was down.Alexsandra giangtnessed that given)1702 (Given - Provider: Neelam Damon RN) prochlorperazine (COMPAZINE) injection 5 mg 5 mg, IV Push, Q6H PRN, Starting on Thu11/10/23 at 1439, Until Thu11/11/23 at 2041, Nausea/Vomiting (Use First) 1501 (Given - Provider: Edna Hanks RN) Linked Groups Order Group 1: DC MED REC REVIEW BY PHARMACYJump to med Discharge Date: 11/11/2023, Discharge Location: Home, Anticipated Discharge Time: After 2 pm, Discharge Medication Orders: DC Med Orders Final, Does not apply, PROTOCOL, Starting on Thu11/11/23 at 1410, Until Thu11/11/23 at 2041 And Discharge Med Rec Final Review by Pharmacy (CANCELED) Routine, Order to be placed by provider after medications have been entered for discharge and are ready for review by Pharmacist. This order can be placed multiple times if changes or additions have been made to medications for discharge. Choose the Preliminary DC Med Rec review when placing orders prior to the day of discharge. Choose Final DC Med Rec when all medication changes have been entered. If DC Med Rec needed now, please page the Pharmacist covering the patient to inform them., Discharge Date: 11/11/2023, Discharge Location: Home, Anticipated Discharge Time: After 2 pm Group 2: VTE prophylaxis contraindicatedJump to med Contraindication Reason: Bleeding Risk, Does not apply, PROTOCOL, Starting on Thu11/10/23 at 2117, Until Thu11/11/23 at 2041 And VTE - Prophylaxis Contraindication Communication (COMPLETED) Contraindication Reason: Bleeding Risk documented in this encounter
--- OUTSIDE RECORDS SUMMARY | 2023-11-13 21:54 | XMS_ITS | Encounter Summary ---
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 NWR (11/10/2023 7:30 AM [...] (11/10/2023 6:45 AM CDT) SST TUBE Stored [facility] Comment:SST tubes (Serum Sep arator) are stored in the lab for 3 days from the collection date. Blood 11/10/2023 6:45 AM CDT 11/10/2023 6:56 AM CDT Paige Koehler MD LABORATORY [facility] [address] [address] * EXTRA TUBE - BLUE (11/10/2023 6:45 AM CDT) BLUE TUBE [facility] Comment:Blue top(Sodium citr ate) tubes are kept for 3 days from the collection date. Blood 11/10/2023 6:45 AM CDT 11/10/2023 6:56 AM CDT Paige Koehler MD LABORATORY Performing Organization Address [facility] Co de Phone Number [address] [address] * BETA HCG, SERUM (11/10/2023 6:40 AM CDT) Beta HCG <1.0 mIU/ml [facility] Comment: HCG Reference Ranges: Male: ?? <2.6 mIU/ml Non ,Premenopausal: <5.3 mIU/ml Postmenopausal: ??<8.3 mIU/ml 3 weeks gestation: ??5.8 - 71.2 mIU/ml 4 weeks gestation: ??9.5 - 750 mIU/ml 5 weeks gestation: ??217 - 7138 mIU/ml 6 weeks gestation: ??158 - 91161 mIU/ml 7 weeks gestation: ??3680 - 774885 mIU/ml 8 weeks gestation: ??63806 - 264240 mIU/ml 9 weeks gestation: ??15545 - 356743 mIU/ml 10 weeks gestation: 58531 - 725408 mIU/ml 12 weeks gestation: 45329 - 272716 mIU/ml 14 weeks gestation: 69212 - 33196 mIU/ml Blood 11/10/2023 6:40 AM CDT 11/10/2023 7:11 AM CDT Paige Koehler MD LABORATORY Performing Organization Address City/[facility] Co de Phone Number [facility] [address] [address] * PRECAUTIONARY TUBE (11/10/2023 6:40 AM CDT) Prec Tube Precautionary Blood Bank Specimen Received. [facility] Blood 11/10/2023 6:40 AM CDT 11/10/2023 6:57 AM CDT Paige Koehler MD LAB TRANSFUSION SER VICES Performing Organization Address City/[facility]/ZIP Co de Phone Number [facility] [address] [address] * (ABNORMAL) ED CHEMISTRY LABS(NA,K,CL,CO2,GLU,CREAT,CA-IONIZED,ANION GAP) (11/10/2023 6:40 AM CDT) Sodium 145 135 - 148 mmol/L [facility] Chloride 110(H) 92 - 108 mmol/L [facility] AnGap 11 8 - 16 mmol/L [facility] Glucose 126(H) 70 - 100 mg/dL [facility] ICA, Actual 4.36(L) 4.40 - 5.20 mg/dL [facility] ICA, pH Corrected 4.39(L) 4.40 - 5.20 mg/dL [facility] Creatinine 0.73 0.50 - 1.00 mg/dL [facility] BICARB 24 22 - 26 mEq/L [facility] eGFR (2020 CKD-EPI) 111 >=60 ml/min/1.7 3m2 [facility] Comment: The estimated glomerular filtration rate (eGFR) was calculated using the CKD-EPI 2020 creatinine equation, which does not include race as a factor. This equation is validated in individuals 18 years of age and older, and eGFR is normalized to a body surface area of 1.73m^2. Potassium 3.7 3.5 - 5.3 mmol/L [facility] Blood 11/10/2023 6:40 AM CDT 11/10/2023 6:58 AM CDT Paige Koehler MD LABORATORY [facility] [address] [address] * (ABNORMAL) CBC WITH PLTS/AUTO DIFF (11/10/2023 6:40 AM CDT) WBC 8.57 4.00 - 10.00 k/cmm [facility] RBC 4.02 3.90 - 5.20 m/cmm [facility] Hgb 13.2 11.5 - 15.7 g/dL [facility] Hematocrit 38.0 34.0 - 45.0 % [facility] MCV 94.5 80.0 - 100.0 fL [facility] MCH 32.8(H) 25.0 - 32.0 pg [facility] MCHC 34.7 31.0 - 36.0 g/dL [facility] RDW 12.1 11.5 - 14.5 % [facility] Plt 235 150 - 400 k/cmm [facility] MPV 9.5 6.5 - 12.5 fL [facility] Automated Abs Neutrophil 6.37 1.70 - 6.50 k/cmm [facility] Comment:Preliminary ANC, Fin al Result to Follow Abs Immature Granulocyte 0.03 0.00 - 0.09 k/cmm [facility] Comment:The Immature Granulo cyte Absolute count contains metamyelocytes and myelocytes. Abs Neutrophil 6.37 1.70 - 6.50 k/cmm [facility] Abs Lymphocyte 1.76 0.80 - 4.00 k/cmm [facility] Abs Monocyte 0.38 0.20 - 1.00 k/cmm [facility] Abs Eosinophil 0.01 0.00 - 0.60 k/cmm [facility] Abs Basophil 0.02 0.00 - 0.20 k/cmm [facility] Blood 11/10/2023 6:40 AM CDT 11/10/2023 7:11 AM CDT Paige Koehler MD LABORATORY Performing Organization Address City/State/[facility] Co de Phone Number [facility] [address] [address] documented in this encounter Visit Diagnoses Diagnosis Closed fracture of mandible, unspecified laterality, unspecified mandibular site, initial encounter (CMS)- Primary Open fracture of symphysis of body of mandible, initial encounter (CMS) Closed fracture of mandible, unspecified laterality, unspecified mandibular site, initial encounter (CMS) Open fracture of tooth, initial encounter Open fracture of symphysis of body of mandible, initial encounter (CMS) documented in this encounter Administered Medications Inactive Administered Medications - up to 3 most recent administrations Medication Order MAR Action Action Date Dose Rate Site chlorhexidine (PERIDEX) 0.12% solution 15 mL 15 mL, Swish & Spit, TID, First dose on Thu11/10/23 at 2000, Until Discontinued Given 11/11/2023 1:45 PM CDT 15 mL Given 11/11/2023 8:52 AM CDT 15 mL chlorhexidine (PERIDEX) 0.12% solution INTRA-OP ONCE PRN, Starting on Thu11/10/23 at 1639, Until Thu11/10/23 at 2001 Given 11/10/2023 4:39 PM CDT 45 mL Oral DC MED REC REVIEW BY PHARMACY Discharge [...] Given 11/11/2023 12:28 AM CDT 0.5 mg lactated ringers infusion at 50 mL/hr, Intravenous, CONTINUOUS, Starting on Thu11/10/23 at 2120, Until Thu11/11/23 at 2041 Infusing 11/11/2023 6:00 AM CDT 50 mL/hr Infusing 11/11/2023 5:00 AM CDT 50 mL/hr Infusing 11/11/2023 4:00 AM CDT 50 mL/hr lidocaine 1%-EPINEPHrine (1:100,000) injection INTRA-OP ONCE PRN, Starting on Thu11/10/23 at 1638, Until Thu11/10/23 at 2001 Given 11/10/2023 4:38 PM CDT 8 mL Ot her (comment) oxyCODONE (ROXICODONE) 5 mg/5 mL oral solution 5 mg 5 mg, Oral, Q6H PRN, Starting on Thu11/11/23 at 0950, Until Thu11/11/23 at 2041, Moderate Pain (Use First) Given 11/11/2023 5:02 [...] at 0650 0656 (Given - Provider: Brooklyn Michelle RN) HYDROmorphone PF (DILAUDID) 1 mg/mL injection 0.5 mg (COMPLETED) 0.5 mg, IV Push, ONE TIME, 1 dose, On Thu11/10/23 at 0925 0939 (Given - Provider: Kaleigh Coto, MARTINEZ) lactated ringer's bolus 1,000 mL (COMPLETED) 1,000 mL, Intravenous, Administer over 60 Minutes, IV BOLUS, 1 dose, On Thu11/10/23 at 1150 1243 (New Bag - Provider: Luisa Blandon, MARTINEZ)1504 (Infusion completed - Provider: Edna Hanks [...] at 1120 1126 (Given - Provider: Mariana Germain, MARTINEZ) polyethylene glycol 3350 (MIRALAX;GLYCOLAX) packet 17 g [...] not apply, PROTOCOL, Starting on Thu11/10/23 at 211, Until Thu11/11/23 at 2041 Continuous Medication Order [...] on Thu11/10/23 at 1639, Until Thu11/10/23 at 2001 1639 (Given - Provider: Jessica Cheema MD) [...] Thu11/10/23 at 2110, Severe Pain (Use First) 2034 (Given - [...] Hicks RN - Comment: epic was down.Alexsandra giagntnessed that given)1702 (Given - Provider: Neelam Damon [...] on Thu11/10/23 at 2117, Until Thu11/11/23 at 204 And VTE - Prophylaxis Contraindication Communication (COMPLETED) Contraindication Reason: Bleeding Risk documented in this encounter
--- OUTSIDE RECORDS SUMMARY | 2023-11-13 21:54 | XMS_ITS | Encounter Summary ---
Author Organization [facility] Address [address] [facility] [place] [address] Phone Care Team Providers Care Tetryl Wringer Operator Name Role Phone Unavailable Primary Care Provider Unavailabl e Encounter Details Date Type Department Care Team (Late st Contact Info) Description 11/10/2023 Orders Only [facility] Film Room [facility] Radiology Department [place]EL [address] [phone] Provider, [place] [address] Referral of patient (Primary Dx) Social History Tobacco Use Types Packs/Day Years [...] [facility] [address] [place] [phone] Scheduled Discharge Disposition: Discharged to home or self care (routine discharge) 11/23/2023 10:00 AM CDT Office Visit [facility] [address] [place] [phone] Sonia, Gen Surg Trauma [address] [place] [address] Scheduled Discharge Disposition: Discharged to home or self care (routine discharge) documented as of this encounter Visit Diagnoses Diagnosis Referral of patient- Primary Referral of patient without examination or treatment documented in this encounter
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
--- OUTSIDE RECORDS SUMMARY | 2023-11-13 21:54 | XMS_ITS | Encounter Summary ---
Author Organization [facility] Address [address] [place] [id number] Phone Care Team Providers Care [employer]man Name Role Phone Unavailable Primary Care Provider Unavailabl e Encounter Details Date Type Department Care Team (Latest Contact Info) Description 11/10/2023 Travel Social History Tobacco Use Types Packs/Day Years [...] [facility] [address] [place] [id number] Scheduled Discharge Disposition: Discharged to home or self care (routine discharge) 11/23/2023 10:00 AM CDT Office Visit [facility] [address] [place] [id number] Sonia, Gen Surg Trauma [address] [place] [id number] Scheduled Discharge Disposition: Discharged to home or self care (routine discharge) documented as of this encounter Visit Diagnoses Not on filedocumented in this encounter
== END 2023-11-13 21:54 | disposition home or self-care (01) ==
LOC: ED 21:51
PROVIDERS: Emergency Provider Family Medicine
DX: T81.89XA Other complications of procedures, not elsewhere classified, initial encounter (principal)
CPT/HCPCS: 99282; 99283